=== PATIENT | male | born 1980 | race Caucasian/White ===

== ENCOUNTER 2024-01-19 10:18 | Emergency (ER) | payer BC, MEDICAID ==
[~2024-01-19] VITALS: Ht 172.7 cm; Wt 80.0 kg
[2024-01-19 10:24] VITALS: O2SAT 98
[2024-01-19 12:32] LABS: CLARITY URINE CLEAR (CLEAR); COLOR URINE YELLOW (YELLOW); GLUCOSE URINE NEGATIVE (NEGATIVE); KETONES URINE NEGATIVE (NEGATIVE); LEUKOCYTE ESTERASE URINE NEGATIVE (NEGATIVE); NITRITE URINE NEGATIVE (NEGATIVE); OCCULT BLOOD URINE NEGATIVE (NEGATIVE); PROTEIN URINE NEGATIVE (NEGATIVE); SPECIFIC GRAVITY URINE 1.011 (1.005-1.030); UROBILINOGEN URINE 0.2 E.U./dL (0.2-1.0)
[2024-01-19] MEDS ORDERED: CEPH500T MT (13:11)
[2024-01-19 13:37] VITALS: BP 119/76; PULSE 68; RESP 18; TEMP 98.5
[2024-01-22 04:10] LABS: CHLAMYDIA TRACHOMATIS NAA Negative (Negative); NEISSERIA GONORRHOEAE NAA Negative (Negative)
== END 2024-01-19 13:41 | disposition home or self-care (01) ==
LOC: ER 10:18
DX: N43.3 Hydrocele, unspecified (principal); N48.22 Cellulitis of corpus cavernosum and penis; F41.9 Anxiety disorder, unspecified; F12.10 Cannabis abuse, uncomplicated
CPT/HCPCS: 76870; 81003; 87491; 87591; 93976; 99284

== ENCOUNTER 2024-03-01 17:19 | Emergency (ER) | payer BC ==
[~2024-03-01] VITALS: Ht 180.3 cm; Wt 80.0 kg
[~2024-03-01 17:19] MED LIST: CEPH500T MT
[2024-03-01 17:25] VITALS: TEMP 98.6; O2SAT 97
[2024-03-01 18:07] LABS: BASOPHILS % 0.9 % (0.0-2.0); EOSINOPHILS % 0.6 % (0.0-5.0); HEMOGLOBIN. 15.4 g/dL (14.0-18.0); LYMPHOCYTES % 18.1 % (20.0-50.0); MEAN CORPUSCULAR HEMOGLOBIN 30.5 pg (28.0-32.0); MEAN CORPUSCULAR HGB CONC 34.2 g/dL (31.0-37.0); MEAN CORPUSCULAR VOLUME 89.2 fL (80.0-94.0); MONOCYTES % 6.1 % (2.0-8.0); NEUTROPHILS % 74.3 % (40.0-76.0); PLATELET 269 x1000/uL (130-400); RED BLOOD CELL COUNT 5.04 mill/uL (4.7-6.1); RED CELL DISTRIBUTION WIDTH 13.8 % (11.6-14.6)
[2024-03-01 18:10] LABS: CHLORIDE 112 mEq/L (98-107); POTASSIUM 3.5 mEq/L (3.5-5.1); SODIUM 142 mEq/L (136-145)
[2024-03-01 18:11] LABS: CALCIUM 9.6 mg/dL (8.7-10.4); CARBON DIOXIDE 24 mEq/L (21-32)
[2024-03-01 18:16] LABS: GLUCOSE 105 mg/dL (70-105); UREA NITROGEN BLOOD 7 mg/dL (9-23)
[2024-03-01 18:59] LABS: TROPONIN I HIGH SENSITIVITY < 4 ng/L (3.0-53)
[2024-03-01] MEDS ORDERED: IBUP-2028 MT (19:54)
[2024-03-01 20:02] VITALS: BP 126/72; PULSE 74; RESP 18
== END 2024-03-01 20:04 | disposition home or self-care (01) ==
LOC: ER 17:19
DX: R07.89 Other chest pain (principal); F41.9 Anxiety disorder, unspecified; F32.9 Major depressive disorder, single episode, unspecified; F12.10 Cannabis abuse, uncomplicated; Z98.890 Other specified postprocedural states
CPT/HCPCS: 36415; 71045; 80048; 84484; 85025; 85379; 93005; 99285

== ENCOUNTER 2024-03-12 12:52 | Emergency (ER) | payer BC, MEDICAID ==
[~2024-03-12] VITALS: Ht 177.8 cm; Wt 91.0 kg
[~2024-03-12 12:52] MED LIST changes: +IBUP-2028 MT
[2024-03-12 12:53] VITALS: O2SAT 99
[2024-03-12] MEDS ORDERED: FENTANYL CITRATE/PF 50MCG/ML 2ML VIAL IV ONE (14:15)
[2024-03-12] MEDS ORDERED: ALBU6.7H15 PO (14:25)
[2024-03-12] MEDS ORDERED: QUET50TA23 PO (14:25)
[2024-03-12] MEDS ORDERED: TRAZ-251 PO (14:25)
[2024-03-12] MEDS ORDERED: BACL-141 PO (14:25)
[2024-03-12] MEDS ORDERED: CLON0.1T PO (14:25)
[2024-03-12] MEDS ORDERED: MIRT-89 PO (14:25)
[2024-03-12] MEDS ORDERED: GABA-532 PO (14:25)
[2024-03-12] MEDS ORDERED: BUPR2TAB SL (14:25)
[2024-03-12] MEDS: FENTANYL CITRATE/PF 50MCG/ML 2ML VIAL IV NR (14:36)
[2024-03-12] MEDS ORDERED: PROPOFOL 200MG/20ML VIAL IV ONE (15:00)
[2024-03-12] MEDS: KETAMINE HCL 50 MG/ML 10ML IV STA (16:40)
[2024-03-12] MEDS ORDERED: HYDR-4001 MT (17:16)
[2024-03-12] MEDS: PROPOFOL 200MG/20ML VIAL IV ONE (17:28)
[2024-03-12] MEDS: MORPHINE SULFATE 4 MG/ML INJ (FOR IV/IM USE) IM ONE (18:07)
[2024-03-12] MEDS: ONDANSETRON HCL 4MG/2ML INJ IV ONE (18:07)
[2024-03-12 18:25] VITALS: BP 123/62; PULSE 62; RESP 16; TEMP 96.8
== END 2024-03-12 18:45 | disposition home or self-care (01) ==
LOC: ER 12:52
DX: S62.313A Displaced fracture of base of third metacarpal bone, left hand, initial encounter for closed fracture (principal); S62.315A Displaced fracture of base of fourth metacarpal bone, left hand, initial encounter for closed fracture; F41.9 Anxiety disorder, unspecified; F32.9 Major depressive disorder, single episode, unspecified; F12.10 Cannabis abuse, uncomplicated; Z79.899 Other long term (current) drug therapy; W18.39XA Other fall on same level, initial encounter; Y93.89 Activity, other specified; Y92.89 Other specified places as the place of occurrence of the external cause; Y99.8 Other external cause status
CPT/HCPCS: 99285; 26605; 96374; 73110; 73120; 99152; 96372; J3010; J3490; J2405; J2704; J2270